=== PATIENT | male | born 1955 | race Caucasian/White ===

== ENCOUNTER 2016-12-20 12:27 | Emergency (ER) | payer OTHER ==
[~2016-12-20] VITALS: Ht 193 cm; Wt 100.4 kg
[2016-12-20] MEDS ORDERED: DOXY100C PO (12:51)
[2016-12-20] MEDS ORDERED: MAGN1TAB25 PO (12:51)
[2016-12-20] MEDS ORDERED: LOMO2.5T PO (12:51)
[2016-12-20] MEDS ORDERED: ESCI5SOL3 PO (12:51)
[2016-12-20] MEDS ORDERED: [UNRECOGNIZED DRUG - CODE] IV (12:51)
[2016-12-20] MEDS ORDERED: LORA1TAB12 PO (12:51)
[2016-12-20] MEDS ORDERED: ONDA4TAB5 PO (12:51)
[2016-12-20] MEDS ORDERED: NS 500 ML IV ONE (13:45)
[2016-12-20 13:59] LABS: BASO % 0.4 % (0.0-1.0); EOS # 0.2 K/mm3 (0.0-0.50); EOS % 2.7 % (0.0-3.0); LARGE UNSTAINED CELL # 0.1 K/mm3 (0.0-0.4); LARGE UNSTAINED CELL % 1.3 % (0.0-4.0); LYMPH # 0.9 K/mm3 (1.5-4.5); LYMPH % 13.3 % (24.0-44.0); MEAN CORPUSCULAR HGB CONC 33.6 g/dl (32.0-36.5); MEAN CORPUSCULAR VOLUME 101.1 fl (80.0-96.0); MONO # 0.3 K/mm3 (0.0-0.8); MONO % 5.1 % (0.0-5.0); NEUTROPHILS # 4.9 K/mm3 (1.8-7.7); NEUTROPHILS % 77.3 % (36.0-66.0); PLATELET COUNT, AUTOMATED 179 k/mm3 (150-450); RED CELL DISTRIBUTION WIDTH 13.5 % (11.5-14.5); WHITE BLOOD COUNT 6.4 K/mm3 (4.0-10.0)
--- NOTE | 2016-12-20 14:18 | REP ---
ABDOMEN FLAT AND UPRIGHT, PA CHEST, THREE VIEW: HISTORY: Abdominal pain. A small amount of air is present in small and large intestine. There are no air fluid levels or dilated loops of intestine. There is no pneumoperitoneum. The lungs are clear. IMPRESSION: Nonspecific bowel gas pattern. Signed by Terell Mercado MD 12/20/2016 02:22 P
[2016-12-20 14:24] LABS: ALBUMIN 3.5 GM/DL (3.2-5.2); ALBUMIN/GLOBULIN RATIO 1.06 (1.00-1.93); ALKALINE PHOSPHATASE 84 U/L (45-117); ALT/SGPT 22 U/L (12-78); ANION GAP 7 MEQ/L (8-16); AST/SGOT 11 U/L (15-37); BILIRUBIN,DIRECT 0.2 MG/DL (0.0-0.2); BILIRUBIN,TOTAL 0.6 MG/DL (0.2-1.0); BLOOD UREA NITROGEN 8 MG/DL (7-18); CALCIUM LEVEL 8.9 MG/DL (8.8-10.2); CARBON DIOXIDE LEVEL 28 MEQ/L (21-32); CHLORIDE LEVEL 104 MEQ/L (98-107); CREATININE FOR GFR 0.95 MG/DL (0.70-1.30); GLOMERULAR FILTRATION RATE > 60.0 (>49); GLUCOSE, FASTING 154 MG/DL (80-110); POTASSIUM SERUM 4.1 MEQ/L (3.5-5.1); SODIUM LEVEL 139 MEQ/L (136-145); TOTAL PROTEIN 6.8 GM/DL (6.4-8.2)
[2016-12-20] MEDS ORDERED: ISOVUE-370 76% 100ML VIAL (Q9967) As Ordered ONE (14:28)
--- NOTE | 2016-12-20 15:31 | ED PDOC ---
Post-Departure Follow-Up AT THIS TIME, SPOKE WITH DR. ROWAN, PT'S ONCOLOGIST AT [facility]. ADVISED THAT NONE OF THE CT FINDINGS TODAY ARE NEW AND THEY HAVE BEEN STABLE FOR "A WHILE". DR. ROWAN WAS CONCERNED FOR ACUTE OBSTRUCTION/ADHESIONS AND REASSURED HIM THAT THERE WAS NO SIGN OF ANY ACUTE OR SURGICAL FINDINGS TODAY. HE ADVISED THAT THIS PT HAS TREATMENTS WITH THEIR OFFICE Q2-4 WEEKS AND SHOULD HAVE AN UPCOMING APPOINTMENT THIS WEEK OR NEXT WEEK. PT WILL FOLLOW UP WITH THEIR OFFICE AND DR. ROWAN ADVISED PT CAN CALL TO BE SEEN SOONER IN THE OFFICE FOR ANY OTHER CONCERNS. AZIZA CUELLAR PA-C Dec 20, 2016 15:31
[2016-12-20] MEDS ORDERED: ACET30TAB PO (15:35)
[2016-12-20 15:38] VITALS: BP 140/80
--- NOTE | 2016-12-20 15:40 | REP ---
CT abdomen and pelvis with IV but without oral contrast: History: Right lower quadrant pain. History of colon carcinoma status post resection. CT contrast dose: 100 mL of intravenous Isovue 370. No comparison study. CT findings: Preliminary digital rack washer radiograph shows a enterostomy ring in the left lower quadrant. The lung bases are clear. There is a small amount of ascites visible in the perihepatic and perisplenic region of the upper abdomen. The liver and spleen are normal in size and homogeneous in texture on postcontrast images. No adrenal mass is observed on either side. The gallbladder is unremarkable. No pancreatic mass or cyst is seen. The kidneys enhance symmetrically and are morphologically intact. Normal caliber aorta is seen. A left lower quadrant colostomy is seen. There is some interloop ascites in the lower abdomen and pelvis. No small or large bowel dilation is seen. There is an anastomotic suture line in the right lower quadrant. The patient appears to be status post abdominoperineal resection. Urinary bladder is unremarkable. There is some irregular enhancing tissue in the presacral soft tissues. In addition there is a large fat density mass lesion occupying the central and left pelvis. This measures 6.4 x 6.0 x 14.7 cm. This may be a lipoma or an area of postoperative fatty implantation. No pelvic adenopathy or other mass lesion is seen. Impression: 1. Status post abdominoperineal resection with left lower quadrant colostomy. There is a small bowel anastomosis in the right mid abdomen. 2. There is mild ascites in the upper and lower abdomen etiology uncertain. 3. There is nodular enhancing tissue in the presacral soft tissues. I cannot exclude recurrent neoplasm. This measures approximately 4.1 cm. 4. There is a large fat tissue deposit versus lipoma in the pelvis 14.5 cm in diameter. 5. No other significant finding. Signed by Arnoldo Cabello MD 12/20/2016 05:19 P
[2016-12-20] MEDS ORDERED: MAGNESIUM CITRATE 300 ML BTL PO ONE (15:45)
== END 2016-12-20 15:49 | disposition home or self-care (01) ==
LOC: M ED 12:27 → EDBD 12:27 → M ED 15:49
DX: R10.31 Right lower quadrant pain (principal); C18.9 Malignant neoplasm of colon, unspecified; Z90.49 Acquired absence of other specified parts of digestive tract; R18.8 Other ascites; R93.41 Abnormal radiologic findings on diagnostic imaging of renal pelvis, ureter, or bladder; Z79.899 Other long term (current) drug therapy
CPT/HCPCS: 74022; 74177; 80048; 80076; 83690; 85025; 99283; Q9967

== ENCOUNTER 2017-09-29 13:10 | Inpatient (IN) | payer OTHER ==
[2017-09-29] MEDS: NS 1,000 ML IV ×2 (14:44→18:38)
[2017-09-29] MEDS: MECLIZINE 25 MG TABLET PO (14:44)
[2017-09-29] MEDS: METOCLOPRAMIDE INJ 10MG/2ML VIAL (J2765) IV (14:44)
[2017-09-29 15:01] LABS: HEMATOCRIT 30.6 % (42.0-52.0); HEMOGLOBIN 10.3 g/dl (13.5-17.5); MEAN CORPUSCULAR HEMOGLOBIN 31.1 pg (27.0-33.0); MEAN CORPUSCULAR HGB CONC 33.7 g/dl (32.0-36.5); MEAN CORPUSCULAR VOLUME 92.4 fl (80.0-96.0); RED BLOOD COUNT 3.31 10^6/uL (4.30-6.10); RED CELL DISTRIBUTION WIDTH 13.7 % (11.5-14.5); WHITE BLOOD COUNT 3.1 10^3/uL (4.0-10.0)
[2017-09-29] MEDS: LIDOCAINE 2% 5ML JELLY UROJET TOP (15:09)
[2017-09-29 15:10] LABS: PLATELET COUNT, AUTOMATED 54 10^3/uL (150-450); POSITIVE DIFF POS FLAG; POSITIVE MORPH POS FLAG
[2017-09-29 15:11] LABS: ADD MANUAL DIFFER YES; DIFF SLIDE NUMBER 273
[2017-09-29 15:12] LABS: INR 1.14; PLATELET F 53; PROTHROMBIN TIME 14.8 SECONDS (12.4-14.5)
[2017-09-29 15:16] LABS: ALBUMIN 1.6 GM/DL (3.2-5.2); ALBUMIN/GLOBULIN RATIO 0.32 (1.00-1.93); ALKALINE PHOSPHATASE 115 U/L (45-117); ALT/SGPT 39 U/L (12-78); AMYLASE 2 U/L (25-115); ANION GAP 8 MEQ/L (8-16); AST/SGOT 58 U/L (7-37); BILIRUBIN,DIRECT < 0.1 MG/DL (0.0-0.2); BILIRUBIN,TOTAL 0.4 MG/DL (0.2-1.0); BLOOD UREA NITROGEN 53 MG/DL (7-18); CALCIUM LEVEL 7.9 MG/DL (8.8-10.2); CARBON DIOXIDE LEVEL 23 MEQ/L (21-32); CHLORIDE LEVEL 96 MEQ/L (98-107); CK-MB VALUE MASS < 1.0 NG/ML (<3.6); CPK CREATINE PHOSPHOKINASE 148 U/L (39-308); CREATININE FOR GFR 3.72 MG/DL (0.70-1.30); GLOMERULAR FILTRATION RATE 17.6 (>49); LIPASE 25 U/L (73-393); MB/CK RELATIVE INDEX 0.67 (< OR =4); SODIUM LEVEL 127 MEQ/L (136-145); TOTAL PROTEIN 6.6 GM/DL (6.4-8.2); TROPONIN I < 0.02 NG/ML (< 0.10)
[2017-09-29 15:19] LABS: GLUCOSE, FASTING 500 MG/DL (70-100)
[2017-09-29 15:20] LABS: POTASSIUM SERUM 6.3 MEQ/L (3.5-5.1)
[2017-09-29 15:31] LABS: LYMPHOCYTES 4 % (16-52); MONOCYTES 1 % (0-8); NEUTROPHILS 95 % (35-75); PLATELET ESTIMATE MARKED DECREASE (NORMAL)
[2017-09-29 16:21] LABS: AMORPHOUS SEDIMENT RFX SMALL (NEGATIVE); KETONE, URINE AUTO RFX NEGATIVE (NEGATIVE); MUCUS, URINE RFX SMALL (NEGATIVE); NITRITE, URINE AUTO RFX NEGATIVE (NEGATIVE); RBC, URINE AUTO RFX 18 /HPF (0-3); SPECIFIC GRAVITY UR AUTO RFX 1.007 (1.002-1.035); SQUAM EPITHELIAL CELL UR AURFX 0 /HPF (0-6); TRANSITIONAL EPITHELIAL AU RFX 2 /HPF
[2017-09-29 16:22] LABS: LEUKOCYTE ESTERASE UR AUTO RFX 3+ (NEGATIVE); WBC, URINE AUTO RFX 103 /HPF (0-3)
[2017-09-29] MEDS: MORPHINE 2 MG/ML 1ML SYRINGE (J2270) IV (16:38)
[2017-09-29] MEDS ORDERED: GLUCOSE 4 GM CHEW TABLET PO (18:00)
[2017-09-29] MEDS ORDERED: DEXTROSE 50% 50 ML SYRINGE IV (18:00)
[2017-09-29] MEDS ORDERED: GLUCAGON FOR INJ 1 MG VIAL (J1610) SC (18:00)
[2017-09-29] MEDS: HumuLIN R (REGULAR) INSULIN (NovoLIN R) **100U/ML** PER UNIT SC (18:10)
[2017-09-29 18:33] LABS: BEDSIDE GLUCOSE 480 MG/DL (80-115)
[2017-09-29] MEDS: CALCIUM GLUCONATE 1,000 MG in D5W MINI-BAG PLUS 100 ML IV (18:38)
[2017-09-29 19:16] LABS: ESTIMATED AVERAGE GLUCOSE 214 MG/DL (60-110); HEMOGLOBIN A1c 9.1 %
[2017-09-29 19:57] LABS: MAGNESIUM LEVEL 1.4 MG/DL (1.8-2.4)
[2017-09-29] MEDS: cefTRIAXone SOD 1 GM in D5W MINI-BAG PLUS 50 ML IV (20:45)
[2017-09-29] MEDS: ACETAMINOPHEN TAB 650MG DOSE (2X325MG) PO (21:47)
[2017-09-29 21:50] LABS: BEDSIDE GLUCOSE 324 MG/DL (80-115)
[2017-09-29] MEDS: HumaLOG INSULIN (NovoLOG) PER UNIT SC (21:53)
[2017-09-29 23:18] LABS: POTASSIUM SERUM 5.1 MEQ/L (3.5-5.1)
[2017-09-30 00:13] LABS: BEDSIDE GLUCOSE 270 MG/DL (80-115)
[2017-09-30 02:42] LABS: ANION GAP 7 MEQ/L (8-16); BLOOD UREA NITROGEN 57 MG/DL (7-18); CALCIUM LEVEL 7.2 MG/DL (8.8-10.2); CARBON DIOXIDE LEVEL 25 MEQ/L (21-32); CHLORIDE LEVEL 103 MEQ/L (98-107); CREATININE FOR GFR 4.06 MG/DL (0.70-1.30); GLOMERULAR FILTRATION RATE 15.9 (>49); GLUCOSE, FASTING 230 MG/DL (70-100); SODIUM LEVEL 135 MEQ/L (136-145)
[2017-09-30 02:51] LABS: POTASSIUM SERUM 5.2 MEQ/L (3.5-5.1)
[2017-09-30] MEDS: NS 1,000 ML IV ×3 (05:53→21:02)
[2017-09-30 05:56] LABS: HEMATOCRIT 26.8 % (42.0-52.0); HEMOGLOBIN 9.1 g/dl (13.5-17.5); MEAN CORPUSCULAR HEMOGLOBIN 30.8 pg (27.0-33.0); MEAN CORPUSCULAR VOLUME 90.8 fl (80.0-96.0); RED BLOOD COUNT 2.95 10^6/uL (4.30-6.10); RED CELL DISTRIBUTION WIDTH 13.9 % (11.5-14.5); WHITE BLOOD COUNT 4.3 10^3/uL (4.0-10.0)
[2017-09-30 05:58] LABS: PLATELET COUNT, AUTOMATED 37 10^3/uL (150-450)
[2017-09-30 06:05] LABS: MAGNESIUM LEVEL 1.4 MG/DL (1.8-2.4)
[2017-09-30] MEDS: ESCITALOPRAM OXALATE 10 MG TAB (LEXAPRO) PO (08:46)
[2017-09-30] MEDS: TAMSULOSIN 0.4 MG CAP PO (08:46)
[2017-09-30] MEDS: FINASTERIDE 5 MG TAB PO (08:46)
[2017-09-30] MEDS: AZITHROMYCIN INJ 500 MG, VIAL MATE ADAPTER 1 EACH in D5W 250 ML IV (08:47)
[2017-09-30] MEDS: HumaLOG INSULIN (NovoLOG) PER UNIT SC ×4 (08:47→21:00)
[2017-09-30 09:15] LABS: ANION GAP 9 MEQ/L (8-16); BLOOD UREA NITROGEN 62 MG/DL (7-18); CALCIUM LEVEL 7.9 MG/DL (8.8-10.2); CARBON DIOXIDE LEVEL 22 MEQ/L (21-32); CHLORIDE LEVEL 102 MEQ/L (98-107); CREATININE FOR GFR 4.28 MG/DL (0.70-1.30); GLUCOSE, FASTING 265 MG/DL (70-100); SODIUM LEVEL 133 MEQ/L (136-145)
[2017-09-30 09:25] LABS: POTASSIUM SERUM 5.4 MEQ/L (3.5-5.1)
[2017-09-30] MEDS ORDERED: NS 1,000 ML IV (11:45)
[2017-09-30] MEDS: MAG SULF 1GM/100ML (MAG RUN) 1 GM in APPROPRIATE DILUENT 1 EA IV ×2 (11:52→13:07)
[2017-09-30 12:03] LABS: BEDSIDE GLUCOSE 264 MG/DL (80-115)
[2017-09-30] MEDS: PERCOCET 5MG/325MG TAB PO (12:37)
[2017-09-30] MEDS: ACETAMINOPHEN TAB 650MG DOSE (2X325MG) PO (16:14)
[2017-09-30 16:30] LABS: ANION GAP 7 MEQ/L (8-16); BLOOD UREA NITROGEN 62 MG/DL (7-18); CALCIUM LEVEL 7.8 MG/DL (8.8-10.2); CARBON DIOXIDE LEVEL 23 MEQ/L (21-32); CHLORIDE LEVEL 102 MEQ/L (98-107); CREATININE FOR GFR 4.89 MG/DL (0.70-1.30); GLOMERULAR FILTRATION RATE 12.9 (>49); GLUCOSE, FASTING 241 MG/DL (70-100); SODIUM LEVEL 132 MEQ/L (136-145)
[2017-09-30 16:43] LABS: POTASSIUM SERUM 5.5 MEQ/L (3.5-5.1)
[2017-09-30 17:05] LABS: BEDSIDE GLUCOSE 241 MG/DL (80-115)
[2017-09-30] MEDS: PATIROMER SORBITEX CALCIUM 8.4 GM POWDER PACKET (VELTASSA) PO (18:16)
[2017-09-30] MEDS: cefTRIAXone SOD 1 GM in D5W MINI-BAG PLUS 50 ML IV (20:00)
[2017-09-30] MEDS ORDERED: LEVEMIR (INSULIN DETEMIR) 1 UNITS/0.01ML SC (21:00)
[2017-09-30 21:14] LABS: BEDSIDE GLUCOSE 201 MG/DL (80-115)
[2017-09-30] MEDS: LEVEMIR (INSULIN DETEMIR) 1 UNITS/0.01ML SC (22:34)
[2017-10-01] MEDS: FUROSEMIDE 20 MG/2 ML VIAL (J1940) IV
[2017-10-01] MEDS: ACETAMINOPHEN TAB 650MG DOSE (2X325MG) PO ×2 (00:37→16:46)
[2017-10-01 04:43] LABS: HEMATOCRIT 26.8 % (42.0-52.0); HEMOGLOBIN 8.9 g/dl (13.5-17.5); MEAN CORPUSCULAR HEMOGLOBIN 30.6 pg (27.0-33.0); MEAN CORPUSCULAR HGB CONC 33.2 g/dl (32.0-36.5); MEAN CORPUSCULAR VOLUME 92.1 fl (80.0-96.0); RED BLOOD COUNT 2.91 10^6/uL (4.30-6.10); RED CELL DISTRIBUTION WIDTH 14.7 % (11.5-14.5); WHITE BLOOD COUNT 5.5 10^3/uL (4.0-10.0)
[2017-10-01 04:47] LABS: PLATELET COUNT, AUTOMATED 39 10^3/uL (150-450)
[2017-10-01 04:47] LABS: MAGNESIUM LEVEL 2.1 MG/DL (1.8-2.4)
[2017-10-01 04:49] LABS: IMMATURE PLATELET FRACTION % 11.3 % (0.0-10.9)
[2017-10-01 04:59] LABS: ALBUMIN 1.4 GM/DL (3.2-5.2); ALBUMIN/GLOBULIN RATIO 0.42 (1.00-1.93); ALKALINE PHOSPHATASE 117 U/L (45-117); ALT/SGPT 37 U/L (12-78); ANION GAP 8 MEQ/L (8-16); AST/SGOT 43 U/L (7-37); BILIRUBIN,TOTAL 0.3 MG/DL (0.2-1.0); BLOOD UREA NITROGEN 73 MG/DL (7-18); CALCIUM LEVEL 7.1 MG/DL (8.8-10.2); CARBON DIOXIDE LEVEL 23 MEQ/L (21-32); CHLORIDE LEVEL 103 MEQ/L (98-107); CREATININE FOR GFR 5.15 MG/DL (0.70-1.30); GLOMERULAR FILTRATION RATE 12.1 (>49); GLUCOSE, FASTING 182 MG/DL (70-100); POTASSIUM SERUM 4.9 MEQ/L (3.5-5.1); SODIUM LEVEL 134 MEQ/L (136-145); TOTAL PROTEIN 4.7 GM/DL (6.4-8.2)
[2017-10-01] MEDS: NS 1,000 ML IV ×3 (05:07→22:51)
[2017-10-01] MEDS: AZITHROMYCIN INJ 500 MG, VIAL MATE ADAPTER 1 EACH in D5W 250 ML IV (08:50)
[2017-10-01] MEDS: PERCOCET 5MG/325MG TAB PO ×2 (08:51→18:55)
[2017-10-01] MEDS: FINASTERIDE 5 MG TAB PO (08:51)
[2017-10-01] MEDS: HumaLOG INSULIN (NovoLOG) PER UNIT SC ×4 (08:51→20:41)
[2017-10-01] MEDS: TAMSULOSIN 0.4 MG CAP PO (08:51)
[2017-10-01] MEDS: ESCITALOPRAM OXALATE 10 MG TAB (LEXAPRO) PO (08:52)
[2017-10-01 11:36] LABS: BEDSIDE GLUCOSE 197 MG/DL (80-115)
[2017-10-01 16:55] LABS: BEDSIDE GLUCOSE 133 MG/DL (80-115)
[2017-10-01 20:15] LABS: BEDSIDE GLUCOSE 140 MG/DL (80-115)
[2017-10-01] MEDS: LEVEMIR (INSULIN DETEMIR) 1 UNITS/0.01ML SC (20:40)
[2017-10-01] MEDS: cefTRIAXone SOD 1 GM in D5W MINI-BAG PLUS 50 ML IV (20:41)
[2017-10-02] MEDS: PERCOCET 5MG/325MG TAB PO (03:02)
[2017-10-02] MEDS: ACETAMINOPHEN TAB 650MG DOSE (2X325MG) PO ×2 (04:41→20:50)
[2017-10-02 05:00] LABS: HEMATOCRIT 29.4 % (42.0-52.0); HEMOGLOBIN 9.6 g/dl (13.5-17.5); MEAN CORPUSCULAR HEMOGLOBIN 31.3 pg (27.0-33.0); MEAN CORPUSCULAR HGB CONC 32.7 g/dl (32.0-36.5); MEAN CORPUSCULAR VOLUME 95.8 fl (80.0-96.0); RED BLOOD COUNT 3.07 10^6/uL (4.30-6.10); RED CELL DISTRIBUTION WIDTH 15.5 % (11.5-14.5); WHITE BLOOD COUNT 6.4 10^3/uL (4.0-10.0)
[2017-10-02 05:18] LABS: AMORPHOUS SEDIMENT RFX SMALL (NEGATIVE); KETONE, URINE AUTO RFX NEGATIVE (NEGATIVE); MUCUS, URINE RFX SMALL (NEGATIVE); NITRITE, URINE AUTO RFX NEGATIVE (NEGATIVE); PLATELET COUNT, AUTOMATED 58 10^3/uL (150-450); RBC, URINE AUTO RFX TNTC /HPF (0-3); SPECIFIC GRAVITY UR AUTO RFX 1.006 (1.002-1.035); SQUAM EPITHELIAL CELL UR AURFX 0 /HPF (0-6); TRANSITIONAL EPITHELIAL AU RFX 6 /HPF
[2017-10-02 05:19] LABS: IMMATURE PLATELET FRACTION % 9.1 % (0.0-10.9)
[2017-10-02 05:56] LABS: LEUKOCYTE ESTERASE UR AUTO RFX 2+ (NEGATIVE); WBC, URINE AUTO RFX 129 /HPF (0-3)
[2017-10-02 07:02] LABS: CARBON DIOXIDE LEVEL 17 MEQ/L (21-32)
[2017-10-02] MEDS: NS 1,000 ML IV (07:35)
[2017-10-02 08:12] LABS: BLOOD UREA NITROGEN 80 MG/DL (7-18); CREATININE FOR GFR 5.53 MG/DL (0.70-1.30); GLOMERULAR FILTRATION RATE 11.2 (>49); GLUCOSE, FASTING 131 MG/DL (70-100); SODIUM LEVEL 135 MEQ/L (136-145)
[2017-10-02 08:13] LABS: ANION GAP 13 MEQ/L (8-16); CALCIUM LEVEL 7.8 MG/DL (8.8-10.2); CHLORIDE LEVEL 105 MEQ/L (98-107); POTASSIUM SERUM 5.2 MEQ/L (3.5-5.1)
[2017-10-02] MEDS: AZITHROMYCIN INJ 500 MG, VIAL MATE ADAPTER 1 EACH in D5W 250 ML IV (09:04)
[2017-10-02] MEDS: HumaLOG INSULIN (NovoLOG) PER UNIT SC ×4 (09:04→21:00)
[2017-10-02] MEDS: ESCITALOPRAM OXALATE 10 MG TAB (LEXAPRO) PO (09:04)
[2017-10-02] MEDS: TAMSULOSIN 0.4 MG CAP PO (09:04)
[2017-10-02] MEDS: FINASTERIDE 5 MG TAB PO (09:04)
[2017-10-02] MEDS: SODIUM BICARBONATE 75 MEQ in NS 0.45% 1,000 ML IV (11:11)
[2017-10-02 12:27] LABS: BEDSIDE GLUCOSE 185 MG/DL (80-115)
[2017-10-02 18:02] LABS: BEDSIDE GLUCOSE 118 MG/DL (80-115)
[2017-10-02 20:20] LABS: BEDSIDE GLUCOSE 168 MG/DL (80-115)
[2017-10-02] MEDS: cefTRIAXone SOD 1 GM in D5W MINI-BAG PLUS 50 ML IV (20:49)
[2017-10-02] MEDS: LEVEMIR (INSULIN DETEMIR) 1 UNITS/0.01ML SC (20:50)
[2017-10-03] MEDS: SODIUM BICARBONATE 75 MEQ in NS 0.45% 1,000 ML IV ×2 (02:24→18:21)
[2017-10-03 05:57] LABS: HEMATOCRIT 30.2 % (42.0-52.0); MEAN CORPUSCULAR HGB CONC 33.1 g/dl (32.0-36.5); MEAN CORPUSCULAR VOLUME 93.5 fl (80.0-96.0); PLATELET COUNT, AUTOMATED 104 10^3/uL (150-450); RED BLOOD COUNT 3.23 10^6/uL (4.30-6.10); RED CELL DISTRIBUTION WIDTH 15.9 % (11.5-14.5)
[2017-10-03 07:17] LABS: ANION GAP 11 MEQ/L (8-16); BLOOD UREA NITROGEN 90 MG/DL (7-18); CALCIUM LEVEL 7.8 MG/DL (8.8-10.2); CARBON DIOXIDE LEVEL 21 MEQ/L (21-32); CHLORIDE LEVEL 104 MEQ/L (98-107); CREATININE FOR GFR 5.41 MG/DL (0.70-1.30); GLOMERULAR FILTRATION RATE 11.5 (>49); GLUCOSE, FASTING 113 MG/DL (70-100); MAGNESIUM LEVEL 2.1 MG/DL (1.8-2.4); POTASSIUM SERUM 4.5 MEQ/L (3.5-5.1); SODIUM LEVEL 136 MEQ/L (136-145)
[2017-10-03] MEDS: HumaLOG INSULIN (NovoLOG) PER UNIT SC ×4 (07:30→21:00)
[2017-10-03] MEDS: ACETAMINOPHEN TAB 650MG DOSE (2X325MG) PO ×3 (08:46→20:31)
[2017-10-03] MEDS: FINASTERIDE 5 MG TAB PO (08:46)
[2017-10-03] MEDS: AZITHROMYCIN 250 MG TAB PO (08:47)
[2017-10-03] MEDS: ESCITALOPRAM OXALATE 10 MG TAB (LEXAPRO) PO (08:47)
[2017-10-03] MEDS: TAMSULOSIN 0.4 MG CAP PO (08:47)
[2017-10-03 11:36] LABS: BEDSIDE GLUCOSE 85 MG/DL (80-115)
[2017-10-03] MEDS: LORazepam 1 MG TAB PO ×2 (12:13→20:30)
[2017-10-03] MEDS: DOCUSATE SODIUM 100 MG CAP PO (16:30)
[2017-10-03 17:46] LABS: BEDSIDE GLUCOSE 119 MG/DL (80-115)
[2017-10-03 20:01] LABS: BEDSIDE GLUCOSE 122 MG/DL (80-115)
[2017-10-03] MEDS: cefTRIAXone SOD 1 GM in D5W MINI-BAG PLUS 50 ML IV (20:37)
[2017-10-03] MEDS: LEVEMIR (INSULIN DETEMIR) 1 UNITS/0.01ML SC ×2 (21:00→21:29)
[2017-10-04 05:48] LABS: HEMOGLOBIN 8.7 g/dl (13.5-17.5); MEAN CORPUSCULAR HEMOGLOBIN 30.7 pg (27.0-33.0); MEAN CORPUSCULAR HGB CONC 33.5 g/dl (32.0-36.5); MEAN CORPUSCULAR VOLUME 91.9 fl (80.0-96.0); RED BLOOD COUNT 2.83 10^6/uL (4.30-6.10); RED CELL DISTRIBUTION WIDTH 15.5 % (11.5-14.5); WHITE BLOOD COUNT 6.7 10^3/uL (4.0-10.0)
[2017-10-04 05:56] LABS: IMMATURE PLATELET FRACTION % 7.2 % (0.0-10.9); PLATELET COUNT, AUTOMATED 83 10^3/uL (150-450)
[2017-10-04 06:11] LABS: ANION GAP 9 MEQ/L (8-16); BLOOD UREA NITROGEN 89 MG/DL (7-18); CALCIUM LEVEL 7.4 MG/DL (8.8-10.2); CARBON DIOXIDE LEVEL 22 MEQ/L (21-32); CHLORIDE LEVEL 104 MEQ/L (98-107); CREATININE FOR GFR 5.14 MG/DL (0.70-1.30); GLOMERULAR FILTRATION RATE 12.1 (>49); GLUCOSE, FASTING 170 MG/DL (70-100); POTASSIUM SERUM 4.6 MEQ/L (3.5-5.1); SODIUM LEVEL 135 MEQ/L (136-145)
[2017-10-04] MEDS: FINASTERIDE 5 MG TAB PO (09:07)
[2017-10-04] MEDS: ESCITALOPRAM OXALATE 10 MG TAB (LEXAPRO) PO (09:07)
[2017-10-04] MEDS: TAMSULOSIN 0.4 MG CAP PO (09:07)
[2017-10-04] MEDS: LORazepam 1 MG TAB PO ×2 (09:07→21:00)
[2017-10-04] MEDS: HumaLOG INSULIN (NovoLOG) PER UNIT SC ×4 (09:07→21:11)
[2017-10-04] MEDS: AZITHROMYCIN 250 MG TAB PO (09:07)
[2017-10-04] MEDS: SODIUM BICARBONATE 75 MEQ in NS 0.45% 1,000 ML IV (10:50)
[2017-10-04 11:28] LABS: BEDSIDE GLUCOSE 235 MG/DL (80-115)
[2017-10-04] MEDS: SENNA 8.6 MG TAB (SENOKOT) PO (15:56)
[2017-10-04] MEDS: DOCUSATE SODIUM 100 MG CAP PO (15:56)
[2017-10-04 17:08] LABS: BEDSIDE GLUCOSE 171 MG/DL (80-115)
[2017-10-04] MEDS: ACETAMINOPHEN TAB 650MG DOSE (2X325MG) PO (18:20)
[2017-10-04] MEDS: cefTRIAXone SOD 1 GM in D5W MINI-BAG PLUS 50 ML IV (21:00)
[2017-10-04 21:13] LABS: BEDSIDE GLUCOSE 155 MG/DL (80-115)
[2017-10-04] MEDS: LEVEMIR (INSULIN DETEMIR) 1 UNITS/0.01ML SC (21:19)
[2017-10-04] MEDS ORDERED: SLF 3 ML SYR IV (23:45)
[2017-10-05] MEDS: SLF 3 ML SYR IV ×3 (05:16→21:29)
[2017-10-05 05:29] LABS: HEMATOCRIT 24.6 % (42.0-52.0); HEMOGLOBIN 8.2 g/dl (13.5-17.5); MEAN CORPUSCULAR HEMOGLOBIN 30.8 pg (27.0-33.0); MEAN CORPUSCULAR HGB CONC 33.3 g/dl (32.0-36.5); MEAN CORPUSCULAR VOLUME 92.5 fl (80.0-96.0); PLATELET COUNT, AUTOMATED 116 10^3/uL (150-450); RED BLOOD COUNT 2.66 10^6/uL (4.30-6.10); RED CELL DISTRIBUTION WIDTH 15.8 % (11.5-14.5); WHITE BLOOD COUNT 7.2 10^3/uL (4.0-10.0)
[2017-10-05 05:44] LABS: ANION GAP 11 MEQ/L (8-16); BLOOD UREA NITROGEN 81 MG/DL (7-18); CALCIUM LEVEL 7.2 MG/DL (8.8-10.2); CARBON DIOXIDE LEVEL 22 MEQ/L (21-32); CHLORIDE LEVEL 104 MEQ/L (98-107); CREATININE FOR GFR 4.68 MG/DL (0.70-1.30); GLOMERULAR FILTRATION RATE 13.5 (>49); GLUCOSE, FASTING 127 MG/DL (70-100); MAGNESIUM LEVEL 1.7 MG/DL (1.8-2.4); PHOSPHORUS LEVEL 3.8 MG/DL (2.5-4.9); POTASSIUM SERUM 4.6 MEQ/L (3.5-5.1); SODIUM LEVEL 137 MEQ/L (136-145)
[2017-10-05] MEDS: MAG SULF 1GM/100ML (MAG RUN) 1 GM in APPROPRIATE DILUENT 1 EA IV (06:45)
[2017-10-05] MEDS: HumaLOG INSULIN (NovoLOG) PER UNIT SC ×4 (07:30→21:00)
[2017-10-05] MEDS: ACETAMINOPHEN TAB 650MG DOSE (2X325MG) PO ×4 (07:55→21:28)
[2017-10-05] MEDS: ESCITALOPRAM OXALATE 10 MG TAB (LEXAPRO) PO (09:37)
[2017-10-05] MEDS: SENNA 8.6 MG TAB (SENOKOT) PO (09:37)
[2017-10-05] MEDS: DOCUSATE SODIUM 100 MG CAP PO (09:37)
[2017-10-05] MEDS: FINASTERIDE 5 MG TAB PO (09:37)
[2017-10-05] MEDS: TAMSULOSIN 0.4 MG CAP PO (09:37)
[2017-10-05 12:11] LABS: BEDSIDE GLUCOSE 165 MG/DL (80-115)
[2017-10-05] MEDS: HEPARIN SOD (PORCINE) 5000 UNITS/ML VIAL SQ ×2 (12:37→21:29)
[2017-10-05 12:51] LABS: KETONE, URINE AUTO RFX NEGATIVE (NEGATIVE); MUCUS, URINE RFX SMALL (NEGATIVE); NITRITE, URINE AUTO RFX NEGATIVE (NEGATIVE); RBC, URINE AUTO RFX 95 /HPF (0-3); SPECIFIC GRAVITY UR AUTO RFX 1.008 (1.002-1.035); SQUAM EPITHELIAL CELL UR AURFX 0 /HPF (0-6)
[2017-10-05 13:01] LABS: LEUKOCYTE ESTERASE UR AUTO RFX 3+ (NEGATIVE); WBC, URINE AUTO RFX 107 /HPF (0-3)
[2017-10-05 17:29] LABS: BEDSIDE GLUCOSE 169 MG/DL (80-115)
[2017-10-05] MEDS ORDERED: SODIUM CHLORIDE 0.9% INJ 10 ML SYR IV (18:15)
[2017-10-05] MEDS: cefTRIAXone SOD 2 GM in D5W MINI-BAG PLUS 50 ML IV (18:20)
[2017-10-05 20:10] LABS: BEDSIDE GLUCOSE 159 MG/DL (80-115)
[2017-10-05] MEDS: LORazepam 1 MG TAB PO (21:28)
[2017-10-05] MEDS: LEVEMIR (INSULIN DETEMIR) 1 UNITS/0.01ML SC (21:29)
[2017-10-06] MEDS: SLF 3 ML SYR IV ×3 (06:00→21:11)
[2017-10-06 06:08] LABS: BEDSIDE GLUCOSE 94 MG/DL (80-115)
[2017-10-06] MEDS: HumaLOG INSULIN (NovoLOG) PER UNIT SC ×4 (07:30→21:00)
[2017-10-06] MEDS: FINASTERIDE 5 MG TAB PO (09:06)
[2017-10-06] MEDS: ESCITALOPRAM OXALATE 10 MG TAB (LEXAPRO) PO (09:06)
[2017-10-06] MEDS: HEPARIN SOD (PORCINE) 5000 UNITS/ML VIAL SQ ×2 (09:06→21:19)
[2017-10-06] MEDS: SODIUM CHLORIDE 0.9% INJ 10 ML SYR IV (09:07)
[2017-10-06] MEDS: TAMSULOSIN 0.4 MG CAP PO (09:07)
[2017-10-06 09:52] LABS: HEMOGLOBIN 7.8 g/dl (13.5-17.5); MEAN CORPUSCULAR HEMOGLOBIN 30.7 pg (27.0-33.0); MEAN CORPUSCULAR HGB CONC 32.5 g/dl (32.0-36.5); MEAN CORPUSCULAR VOLUME 94.5 fl (80.0-96.0); PLATELET COUNT, AUTOMATED 159 10^3/uL (150-450); RED BLOOD COUNT 2.54 10^6/uL (4.30-6.10); RED CELL DISTRIBUTION WIDTH 15.9 % (11.5-14.5)
[2017-10-06 10:15] LABS: ANION GAP 11 MEQ/L (8-16); BLOOD UREA NITROGEN 72 MG/DL (7-18); CARBON DIOXIDE LEVEL 24 MEQ/L (21-32); CHLORIDE LEVEL 105 MEQ/L (98-107); CREATININE FOR GFR 4.18 MG/DL (0.70-1.30); GLOMERULAR FILTRATION RATE 15.4 (>49); GLUCOSE, FASTING 171 MG/DL (70-100); POTASSIUM SERUM 4.9 MEQ/L (3.5-5.1); SODIUM LEVEL 140 MEQ/L (136-145)
[2017-10-06 11:21] LABS: BEDSIDE GLUCOSE 145 MG/DL (80-115)
[2017-10-06 16:44] LABS: BEDSIDE GLUCOSE 134 MG/DL (80-115)
[2017-10-06] MEDS: cefTRIAXone SOD 2 GM in D5W MINI-BAG PLUS 50 ML IV (17:28)
[2017-10-06] MEDS: ACETAMINOPHEN TAB 650MG DOSE (2X325MG) PO (18:15)
[2017-10-06 20:51] LABS: BEDSIDE GLUCOSE 189 MG/DL (80-115)
[2017-10-06 20:55] LABS: IMMEDIATE SPIN CROSSMATCH 1 1
[2017-10-06] MEDS: LEVEMIR (INSULIN DETEMIR) 1 UNITS/0.01ML SC (21:19)
[2017-10-06] MEDS ORDERED: fentaNYL 100 MCG/2 ML INJECTION (J3010) As Ordered (23:14)
[2017-10-06] MEDS ORDERED: MIDAZOLAM INJ 2 MG/2 ML VIAL (J2250) As Ordered (23:14)
[2017-10-07] MEDS ORDERED: PROPOFOL 200 MG/20 ML VIAL As Ordered (00:41)
[2017-10-07] MEDS: LIDOCAINE 1% SDV INJ 30 ML VIAL As Ordered (01:11)
[2017-10-07] MEDS: NS 1,000 ML IV (03:45)
[2017-10-07] MEDS ORDERED: METOCLOPRAMIDE INJ 10MG/2ML VIAL (J2765) IV (03:45)
[2017-10-07] MEDS ORDERED: PERCOCET 5MG/325MG TAB PO (03:45)
[2017-10-07] MEDS ORDERED: fentaNYL 100 MCG/2 ML INJECTION (J3010) IV (03:45)
[2017-10-07] MEDS ORDERED: ONDANSETRON 4MG/2ML VIAL (J2405) IV (03:45)
[2017-10-07] MEDS: SLF 3 ML SYR IV ×3 (06:00→21:23)
[2017-10-07 06:39] LABS: BASO % 0.2 % (0.0-1.0); EOS % 0.4 % (0.0-3.0); HEMATOCRIT 25.7 % (42.0-52.0); HEMOGLOBIN 8.6 g/dl (13.5-17.5); IMMATURE GRANULOCYTE % 1.6 % (0-3.0); LYMPH % 1.8 % (24.0-44.0); MEAN CORPUSCULAR HEMOGLOBIN 30.8 pg (27.0-33.0); MEAN CORPUSCULAR HGB CONC 33.5 g/dl (32.0-36.5); MEAN CORPUSCULAR VOLUME 92.1 fl (80.0-96.0); MONO # 0.2 10^3/uL (0.0-0.8); MONO % 2.6 % (0.0-5.0); NEUTROPHILS % 93.4 % (36.0-66.0); PLATELET COUNT, AUTOMATED 205 10^3/uL (150-450); RED BLOOD COUNT 2.79 10^6/uL (4.30-6.10); RED CELL DISTRIBUTION WIDTH 16.7 % (11.5-14.5); WHITE BLOOD COUNT 8.5 10^3/uL (4.0-10.0)
[2017-10-07 07:09] LABS: ANION GAP 8 MEQ/L (8-16); BLOOD UREA NITROGEN 64 MG/DL (7-18); CALCIUM LEVEL 7.3 MG/DL (8.8-10.2); CARBON DIOXIDE LEVEL 23 MEQ/L (21-32); CHLORIDE LEVEL 107 MEQ/L (98-107); CREATININE FOR GFR 3.58 MG/DL (0.70-1.30); GLOMERULAR FILTRATION RATE 18.4 (>49); GLUCOSE, FASTING 123 MG/DL (70-100); POTASSIUM SERUM 4.9 MEQ/L (3.5-5.1); SODIUM LEVEL 138 MEQ/L (136-145)
[2017-10-07] MEDS: HumaLOG INSULIN (NovoLOG) PER UNIT SC ×4 (07:30→21:00)
[2017-10-07 07:48] LABS: LYMPH # 0.2 10^3/uL (1.5-4.5); POSITIVE DIFF POS FLAG
[2017-10-07 08:19] LABS: ALBUMIN 1.3 GM/DL (3.2-5.2); MAGNESIUM LEVEL 1.8 MG/DL (1.8-2.4); PHOSPHORUS LEVEL 3.2 MG/DL (2.5-4.9)
[2017-10-07] MEDS: SODIUM CHLORIDE 0.9% 1000 ML IV (08:30)
[2017-10-07] MEDS: SODIUM CHLORIDE 0.9% INJ 10 ML SYR IV (09:00)
[2017-10-07] MEDS: ESCITALOPRAM OXALATE 10 MG TAB (LEXAPRO) PO (09:49)
[2017-10-07] MEDS: FINASTERIDE 5 MG TAB PO (09:49)
[2017-10-07] MEDS: TAMSULOSIN 0.4 MG CAP PO (09:50)
[2017-10-07] MEDS: HEPARIN SOD (PORCINE) 5000 UNITS/ML VIAL SQ ×2 (09:52→21:22)
[2017-10-07 11:53] LABS: BEDSIDE GLUCOSE 141 MG/DL (80-115)
[2017-10-07 16:59] LABS: BEDSIDE GLUCOSE 123 MG/DL (80-115)
[2017-10-07] MEDS: cefTRIAXone SOD 2 GM in D5W MINI-BAG PLUS 50 ML IV (17:56)
[2017-10-07 20:57] LABS: BEDSIDE GLUCOSE 186 MG/DL (80-115)
[2017-10-07] MEDS: LEVEMIR (INSULIN DETEMIR) 1 UNITS/0.01ML SC (21:22)
[2017-10-08] MEDS: SLF 3 ML SYR IV ×3 (05:26→21:29)
[2017-10-08 06:50] LABS: BASO % 0.2 % (0.0-1.0); EOS % 0.3 % (0.0-3.0); HEMOGLOBIN 8.7 g/dl (13.5-17.5); IMMATURE GRANULOCYTE % 1.7 % (0-3.0); LYMPH % 1.8 % (24.0-44.0); MEAN CORPUSCULAR HEMOGLOBIN 30.3 pg (27.0-33.0); MEAN CORPUSCULAR HGB CONC 32.2 g/dl (32.0-36.5); MEAN CORPUSCULAR VOLUME 94.1 fl (80.0-96.0); MONO # 0.2 10^3/uL (0.0-0.8); MONO % 2.2 % (0.0-5.0); NEUTROPHILS # 8.2 10^3/uL (1.8-7.7); NEUTROPHILS % 93.8 % (36.0-66.0); PLATELET COUNT, AUTOMATED 235 10^3/uL (150-450); RED BLOOD COUNT 2.87 10^6/uL (4.30-6.10); RED CELL DISTRIBUTION WIDTH 16.3 % (11.5-14.5); WHITE BLOOD COUNT 8.8 10^3/uL (4.0-10.0)
[2017-10-08 06:54] LABS: LYMPH # 0.2 10^3/uL (1.5-4.5); POSITIVE DIFF POS FLAG
[2017-10-08 07:12] LABS: BLOOD UREA NITROGEN 56 MG/DL (7-18); CREATININE FOR GFR 3.27 MG/DL (0.70-1.30); GLUCOSE, FASTING 151 MG/DL (70-100)
[2017-10-08 07:13] LABS: ANION GAP 9 MEQ/L (8-16); CALCIUM LEVEL 7.7 MG/DL (8.8-10.2); CARBON DIOXIDE LEVEL 23 MEQ/L (21-32); CHLORIDE LEVEL 107 MEQ/L (98-107); GLOMERULAR FILTRATION RATE 20.5 (>49); POTASSIUM SERUM 4.6 MEQ/L (3.5-5.1); SODIUM LEVEL 139 MEQ/L (136-145)
[2017-10-08] MEDS: SODIUM CHLORIDE 0.9% INJ 10 ML SYR IV (09:00)
[2017-10-08] MEDS: FINASTERIDE 5 MG TAB PO (09:22)
[2017-10-08] MEDS: HumaLOG INSULIN (NovoLOG) PER UNIT SC ×5 (09:22→21:00)
[2017-10-08] MEDS: HEPARIN SOD (PORCINE) 5000 UNITS/ML VIAL SQ ×2 (09:22→21:29)
[2017-10-08] MEDS: ESCITALOPRAM OXALATE 10 MG TAB (LEXAPRO) PO (09:22)
[2017-10-08] MEDS: TAMSULOSIN 0.4 MG CAP PO (09:22)
[2017-10-08 12:02] LABS: BEDSIDE GLUCOSE 110 MG/DL (80-115)
[2017-10-08 17:20] LABS: BEDSIDE GLUCOSE 178 MG/DL (80-115)
[2017-10-08] MEDS: cefTRIAXone SOD 2 GM in D5W MINI-BAG PLUS 50 ML IV (18:12)
[2017-10-08 20:55] LABS: BEDSIDE GLUCOSE 148 MG/DL (80-115)
[2017-10-08] MEDS: LEVEMIR (INSULIN DETEMIR) 1 UNITS/0.01ML SC (21:29)
[2017-10-09] MEDS: SLF 3 ML SYR IV ×3 (05:12→21:31)
[2017-10-09 06:19] LABS: BEDSIDE GLUCOSE 110 MG/DL (80-115)
[2017-10-09 07:47] LABS: BASO % 0.2 % (0.0-1.0); EOS % 0.3 % (0.0-3.0); HEMATOCRIT 26.4 % (42.0-52.0); HEMOGLOBIN 8.6 g/dl (13.5-17.5); LYMPH % 1.9 % (24.0-44.0); MEAN CORPUSCULAR HEMOGLOBIN 30.6 pg (27.0-33.0); MEAN CORPUSCULAR HGB CONC 32.6 g/dl (32.0-36.5); MONO # 0.2 10^3/uL (0.0-0.8); MONO % 2.6 % (0.0-5.0); NEUTROPHILS # 8.5 10^3/uL (1.8-7.7); PLATELET COUNT, AUTOMATED 275 10^3/uL (150-450); RED BLOOD COUNT 2.81 10^6/uL (4.30-6.10); RED CELL DISTRIBUTION WIDTH 15.8 % (11.5-14.5); WHITE BLOOD COUNT 9.1 10^3/uL (4.0-10.0)
[2017-10-09 08:01] LABS: ANION GAP 7 MEQ/L (8-16); BLOOD UREA NITROGEN 48 MG/DL (7-18); CARBON DIOXIDE LEVEL 24 MEQ/L (21-32); CHLORIDE LEVEL 109 MEQ/L (98-107); GLOMERULAR FILTRATION RATE 22.6 (>49); GLUCOSE, FASTING 99 MG/DL (70-100); POTASSIUM SERUM 4.5 MEQ/L (3.5-5.1); SODIUM LEVEL 140 MEQ/L (136-145)
[2017-10-09] MEDS: HEPARIN SOD (PORCINE) 5000 UNITS/ML VIAL SQ ×2 (08:26→21:30)
[2017-10-09] MEDS: FINASTERIDE 5 MG TAB PO (08:26)
[2017-10-09] MEDS: ESCITALOPRAM OXALATE 10 MG TAB (LEXAPRO) PO (08:26)
[2017-10-09] MEDS: TAMSULOSIN 0.4 MG CAP PO (08:26)
[2017-10-09] MEDS: SODIUM CHLORIDE 0.9% INJ 10 ML SYR IV (08:27)
[2017-10-09] MEDS: HumaLOG INSULIN (NovoLOG) PER UNIT SC ×4 (08:27→21:00)
[2017-10-09 09:11] LABS: LYMPH # 0.2 10^3/uL (1.5-4.5); POSITIVE DIFF POS FLAG
[2017-10-09 11:24] LABS: BEDSIDE GLUCOSE 115 MG/DL (80-115)
[2017-10-09 12:04] LABS: IMMEDIATE SPIN CROSSMATCH 1 1
[2017-10-09 17:05] LABS: BEDSIDE GLUCOSE 119 MG/DL (80-115)
[2017-10-09] MEDS: CEFDINIR 300 MG CAP (OMNICEF) PO (17:31)
[2017-10-09 20:43] LABS: BEDSIDE GLUCOSE 148 MG/DL (80-115)
[2017-10-09] MEDS: ACETAMINOPHEN TAB 650MG DOSE (2X325MG) PO (21:30)
[2017-10-09] MEDS: LEVEMIR (INSULIN DETEMIR) 1 UNITS/0.01ML SC (21:31)
[2017-10-10] MEDS: SLF 3 ML SYR IV ×3 (05:13→21:30)
[2017-10-10 05:58] LABS: BEDSIDE GLUCOSE 93 MG/DL (80-115)
[2017-10-10 06:32] LABS: BASO % 0.4 % (0.0-1.0); EOS % 0.4 % (0.0-3.0); HEMATOCRIT 29.3 % (42.0-52.0); HEMOGLOBIN 9.5 g/dl (13.5-17.5); IMMATURE GRANULOCYTE % 1.7 % (0-3.0); LYMPH # 0.3 10^3/uL (1.5-4.5); MEAN CORPUSCULAR HEMOGLOBIN 30.4 pg (27.0-33.0); MEAN CORPUSCULAR HGB CONC 32.4 g/dl (32.0-36.5); MEAN CORPUSCULAR VOLUME 93.6 fl (80.0-96.0); MONO # 0.3 10^3/uL (0.0-0.8); MONO % 3.3 % (0.0-5.0); NEUTROPHILS # 8.2 10^3/uL (1.8-7.7); NEUTROPHILS % 91.2 % (36.0-66.0); PLATELET COUNT, AUTOMATED 290 10^3/uL (150-450); RED BLOOD COUNT 3.13 10^6/uL (4.30-6.10); RED CELL DISTRIBUTION WIDTH 15.7 % (11.5-14.5)
[2017-10-10 06:58] LABS: POSITIVE DIFF POS FLAG
[2017-10-10] MEDS: HumaLOG INSULIN (NovoLOG) PER UNIT SC ×4 (07:30→21:00)
[2017-10-10] MEDS: CEFDINIR 300 MG CAP (OMNICEF) PO (08:30)
[2017-10-10] MEDS: TAMSULOSIN 0.4 MG CAP PO (08:30)
[2017-10-10] MEDS: FINASTERIDE 5 MG TAB PO (08:30)
[2017-10-10] MEDS: ESCITALOPRAM OXALATE 10 MG TAB (LEXAPRO) PO (08:30)
[2017-10-10] MEDS: SODIUM CHLORIDE 0.9% INJ 10 ML SYR IV (08:32)
[2017-10-10] MEDS: HEPARIN SOD (PORCINE) 5000 UNITS/ML VIAL SQ ×2 (08:32→21:00)
[2017-10-10 08:52] LABS: ANION GAP 11 MEQ/L (8-16); BLOOD UREA NITROGEN 43 MG/DL (7-18); CALCIUM LEVEL 7.9 MG/DL (8.8-10.2); CARBON DIOXIDE LEVEL 22 MEQ/L (21-32); CHLORIDE LEVEL 108 MEQ/L (98-107); CREATININE FOR GFR 2.87 MG/DL (0.70-1.30); GLOMERULAR FILTRATION RATE 23.8 (>49); GLUCOSE, FASTING 85 MG/DL (70-100); POTASSIUM SERUM 4.7 MEQ/L (3.5-5.1); SODIUM LEVEL 141 MEQ/L (136-145)
[2017-10-10 11:22] LABS: BEDSIDE GLUCOSE 145 MG/DL (80-115)
[2017-10-10 17:27] LABS: BEDSIDE GLUCOSE 108 MG/DL (80-115)
[2017-10-10] MEDS: LEVEMIR (INSULIN DETEMIR) 1 UNITS/0.01ML SC (21:00)
[2017-10-10 21:04] LABS: BEDSIDE GLUCOSE 184 MG/DL (80-115)
[2017-10-11 05:41] LABS: BEDSIDE GLUCOSE 144 MG/DL (80-115)
[2017-10-11] MEDS: SLF 3 ML SYR IV (05:44)
[2017-10-11] MEDS: HumaLOG INSULIN (NovoLOG) PER UNIT SC ×2 (07:30→12:00)
[2017-10-11] MEDS: SODIUM CHLORIDE 0.9% INJ 10 ML SYR IV (07:44)
[2017-10-11 07:47] LABS: BASO % 0.4 % (0.0-1.0); EOS # 0.1 10^3/uL (0.0-0.50); EOS % 0.5 % (0.0-3.0); HEMATOCRIT 28.4 % (42.0-52.0); HEMOGLOBIN 9.2 g/dl (13.5-17.5); IMMATURE GRANULOCYTE % 1.9 % (0-3.0); LYMPH # 0.4 10^3/uL (1.5-4.5); LYMPH % 4.5 % (24.0-44.0); MEAN CORPUSCULAR HEMOGLOBIN 30.4 pg (27.0-33.0); MEAN CORPUSCULAR HGB CONC 32.4 g/dl (32.0-36.5); MEAN CORPUSCULAR VOLUME 93.7 fl (80.0-96.0); MONO # 0.4 10^3/uL (0.0-0.8); MONO % 4.7 % (0.0-5.0); NEUTROPHILS # 8.2 10^3/uL (1.8-7.7); PLATELET COUNT, AUTOMATED 271 10^3/uL (150-450); RED BLOOD COUNT 3.03 10^6/uL (4.30-6.10); RED CELL DISTRIBUTION WIDTH 15.4 % (11.5-14.5); WHITE BLOOD COUNT 9.3 10^3/uL (4.0-10.0)
[2017-10-11 07:56] LABS: ANION GAP 10 MEQ/L (8-16); BLOOD UREA NITROGEN 33 MG/DL (7-18); CALCIUM LEVEL 7.6 MG/DL (8.8-10.2); CARBON DIOXIDE LEVEL 19 MEQ/L (21-32); CHLORIDE LEVEL 109 MEQ/L (98-107); CREATININE FOR GFR 2.59 MG/DL (0.70-1.30); GLOMERULAR FILTRATION RATE 26.8 (>49); GLUCOSE, FASTING 164 MG/DL (70-100); POTASSIUM SERUM 4.7 MEQ/L (3.5-5.1); SODIUM LEVEL 138 MEQ/L (136-145)
[2017-10-11] MEDS: HEPARIN SOD (PORCINE) 5000 UNITS/ML VIAL SQ (09:00)
[2017-10-11] MEDS: FINASTERIDE 5 MG TAB PO (09:15)
[2017-10-11] MEDS: ESCITALOPRAM OXALATE 10 MG TAB (LEXAPRO) PO (09:15)
[2017-10-11] MEDS: CEFDINIR 300 MG CAP (OMNICEF) PO ×2 (09:15→11:49)
[2017-10-11] MEDS: TAMSULOSIN 0.4 MG CAP PO (09:15)
[2017-10-12] MEDS ORDERED: CEFDINIR 300 MG CAP (OMNICEF) PO (09:00)
== END 2017-10-11 13:00 | disposition home or self-care (01) | DRG 711 ==
LOC: M ED 13:10 → M MS5PR 10-05 16:39 → M ED INP 17:50 → M PCU 21:03
PROC: 30233N1 Transfusion of Nonautologous Red Blood Cells into Peripheral Vein, Percutaneous Approach (ICD-10-PCS; principal; 2017-10-07 00:34)
PROC: 02PY33Z Removal of Infusion Device from Great Vessel, Percutaneous Approach (ICD-10-PCS; 2017-10-07 00:34)
DX: T80.212A Local infection due to central venous catheter, initial encounter (principal); A41.59 Other Gram-negative sepsis; J18.9 Pneumonia, unspecified organism; N17.9 Acute kidney failure, unspecified; D61.818 Other pancytopenia; D69.6 Thrombocytopenia, unspecified; N39.0 Urinary tract infection, site not specified; N30.40 Irradiation cystitis without hematuria; K56.7 Ileus, unspecified; E11.65 Type 2 diabetes mellitus with hyperglycemia; E87.5 Hyperkalemia; E87.1 Hypo-osmolality and hyponatremia; K21.9 Gastro-esophageal reflux disease without esophagitis; F41.9 Anxiety disorder, unspecified; F32.9 Major depressive disorder, single episode, unspecified; R33.9 Retention of urine, unspecified; N40.0 Benign prostatic hyperplasia without lower urinary tract symptoms; D64.9 Anemia, unspecified; Z79.899 Other long term (current) drug therapy; B96.1 Klebsiella pneumoniae [K. pneumoniae] as the cause of diseases classified elsewhere; E86.0 Dehydration; Z85.038 Personal history of other malignant neoplasm of large intestine; K94.09 Other complications of colostomy; Y82.8 Other medical devices associated with adverse incidents

== ENCOUNTER 2017-11-19 20:46 | Inpatient (IN) | payer OTHER ==
[2017-11-19] MEDS: ACETAMINOPHEN 325 MG TAB PO (21:26)
[2017-11-19] MEDS: NS 500 ML IV (21:26)
[2017-11-19 21:32] LABS: BASO % 0.1 % (0.0-1.0); EOS % 0.2 % (0.0-3.0); HEMATOCRIT 15.8 % (42.0-52.0); IMMATURE GRANULOCYTE % 2.8 % (0-3.0); LYMPH % 16.6 % (24.0-44.0); MEAN CORPUSCULAR HEMOGLOBIN 28.1 pg (27.0-33.0); MEAN CORPUSCULAR HGB CONC 31.6 g/dl (32.0-36.5); MEAN CORPUSCULAR VOLUME 88.8 fl (80.0-96.0); MONO % 5.5 % (0.0-5.0); NEUTROPHILS # 13.7 10^3/uL (1.8-7.7); NEUTROPHILS % 74.8 % (36.0-66.0); PLATELET COUNT, AUTOMATED 462 10^3/uL (150-450); RED BLOOD COUNT 1.78 10^6/uL (4.30-6.10); RED CELL DISTRIBUTION WIDTH 15.7 % (11.5-14.5); WHITE BLOOD COUNT 18.3 10^3/uL (4.0-10.0)
[2017-11-19 21:42] LABS: APPEARANCE, URINE MANUAL TURBID (CLEAR); COLOR, URINE MANUAL RED (YELLOW)
[2017-11-19 21:44] LABS: GLUCOSE, URINE (UA) MANUAL NEGATIVE (NEGATIVE); PROTEIN, URINE MANUAL 3+ mg/dL (NEGATIVE)
[2017-11-19 21:45] LABS: BILIRUBIN, URINE MANUAL NEGATIVE (NEGATIVE); BLOOD URINE MANUAL POSITIVE (NEGATIVE); KETONE, URINE MANUAL NEGATIVE (NEGATIVE); LEUKOCYTE ESTERASE, URINE MAN 3 (NEGATIVE); MICROSCOPIC INDICATED? MAN YES (NO); NITRITE, URINE MANUAL POSITIVE (NEGATIVE); UROBILINOGEN, URINE MANUAL NORMAL (NORMAL)
[2017-11-19 21:46] LABS: RBC, URINE TNTC /hpf (0-3); SQUAMOUS EPITHELIAL CELL URINE NONE SEEN /hpf (SMALL AMT); WBC, URINE TNTC /hpf (0-3)
[2017-11-19 21:47] LABS: HYALINE CAST, URINE NONE SEEN /lpf (0-1); MICROSCOPIC EXAM UNSPUN
[2017-11-19 21:48] LABS: BACTERIA, URINE MOD AMOUNT
[2017-11-19 21:53] LABS: ALBUMIN 1.9 GM/DL (3.2-5.2); ALBUMIN/GLOBULIN RATIO 0.38 (1.00-1.93); ALKALINE PHOSPHATASE 141 U/L (45-117); ALT/SGPT 27 U/L (12-78); ANION GAP 9 MEQ/L (8-16); AST/SGOT 19 U/L (7-37); BILIRUBIN,DIRECT 0.2 MG/DL (0.0-0.2); BILIRUBIN,TOTAL 0.4 MG/DL (0.2-1.0); BLOOD UREA NITROGEN 58 MG/DL (7-18); CALCIUM LEVEL 7.6 MG/DL (8.8-10.2); CARBON DIOXIDE LEVEL 24 MEQ/L (21-32); CHLORIDE LEVEL 97 MEQ/L (98-107); CREATININE FOR GFR 4.82 MG/DL (0.70-1.30); GLUCOSE, FASTING 159 MG/DL (70-100); SODIUM LEVEL 130 MEQ/L (136-145); TOTAL PROTEIN 6.9 GM/DL (6.4-8.2)
[2017-11-19 21:54] LABS: POTASSIUM SERUM 5.9 MEQ/L (3.5-5.1)
[2017-11-19 21:57] LABS: LACTIC ACID SEPSIS PROTOCOL 1.1 MMOL/L (0.4-2.0)
[2017-11-19] MEDS: VANCOMYCIN HCL 750 MG, VIAL MATE ADAPTER 1 EACH in D5W 250 ML IV (22:15)
[2017-11-19] MEDS: SOD POLYSTYRENE SULFONATE SUSP 15 GM/60 ML UD PO (22:28)
[2017-11-19] MEDS: IMIPENEM/CILASTATIN 250 MG in D5W MINI-BAG PLUS 100 ML IV (22:28)
[2017-11-20 01:41] LABS: IMMEDIATE SPIN CROSSMATCH 1 2
[2017-11-20] MEDS: OMEPRAZOLE 20 MG CAP PO ×2 (03:42→20:02)
[2017-11-20] MEDS: ESCITALOPRAM OXALATE 10 MG TAB (LEXAPRO) PO ×2 (03:42→20:03)
[2017-11-20] MEDS: cefTRIAXone SOD 1 GM in D5W MINI-BAG PLUS 50 ML IV ×2 (03:44→23:31)
[2017-11-20] MEDS: NS 1,000 ML IV ×2 (03:44→12:10)
[2017-11-20 06:47] LABS: MEAN CORPUSCULAR HEMOGLOBIN 28.7 pg (27.0-33.0); MEAN CORPUSCULAR HGB CONC 32.3 g/dl (32.0-36.5); MEAN CORPUSCULAR VOLUME 88.7 fl (80.0-96.0); PLATELET COUNT, AUTOMATED 373 10^3/uL (150-450); RED BLOOD COUNT 2.93 10^6/uL (4.30-6.10); RED CELL DISTRIBUTION WIDTH 15.2 % (11.5-14.5); WHITE BLOOD COUNT 19.4 10^3/uL (4.0-10.0)
[2017-11-20 06:51] LABS: HEMOGLOBIN 8.4 g/dl (13.5-17.5)
[2017-11-20 07:08] LABS: ANION GAP 12 MEQ/L (8-16); BLOOD UREA NITROGEN 56 MG/DL (7-18); CALCIUM LEVEL 7.9 MG/DL (8.8-10.2); CARBON DIOXIDE LEVEL 21 MEQ/L (21-32); CHLORIDE LEVEL 100 MEQ/L (98-107); CREATININE FOR GFR 4.64 MG/DL (0.70-1.30); GLOMERULAR FILTRATION RATE 13.6 (>49); GLUCOSE, FASTING 162 MG/DL (70-100); POTASSIUM SERUM 5.5 MEQ/L (3.5-5.1); SODIUM LEVEL 133 MEQ/L (136-145)
[2017-11-20 12:29] LABS: IMMEDIATE SPIN CROSSMATCH 1 1
[2017-11-20] MEDS: ACETAMINOPHEN TAB 650MG DOSE (2X325MG) PO (15:33)
[2017-11-20] MEDS: PERCOCET 5MG/325MG TAB PO (15:45)
[2017-11-21] MEDS: ACETAMINOPHEN TAB 650MG DOSE (2X325MG) PO ×3 (02:09→17:08)
[2017-11-21] MEDS: PERCOCET 5MG/325MG TAB PO (03:03)
[2017-11-21] MEDS: NS 1,000 ML IV ×3 (05:44→23:45)
[2017-11-21 08:51] LABS: BASO % 0.1 % (0.0-1.0); EOS # 0.1 10^3/uL (0.0-0.50); EOS % 0.5 % (0.0-3.0); HEMATOCRIT 17.7 % (42.0-52.0); IMMATURE GRANULOCYTE % 3.3 % (0-3.0); LYMPH % 12.1 % (24.0-44.0); MEAN CORPUSCULAR HEMOGLOBIN 28.7 pg (27.0-33.0); MEAN CORPUSCULAR HGB CONC 31.6 g/dl (32.0-36.5); MEAN CORPUSCULAR VOLUME 90.8 fl (80.0-96.0); MONO # 0.7 10^3/uL (0.0-0.8); MONO % 4.1 % (0.0-5.0); NEUTROPHILS # 13.2 10^3/uL (1.8-7.7); NEUTROPHILS % 79.9 % (36.0-66.0); PLATELET COUNT, AUTOMATED 395 10^3/uL (150-450); RED BLOOD COUNT 1.95 10^6/uL (4.30-6.10); RED CELL DISTRIBUTION WIDTH 15.6 % (11.5-14.5); WHITE BLOOD COUNT 16.5 10^3/uL (4.0-10.0)
[2017-11-21 08:58] LABS: HEMOGLOBIN 5.6 g/dl (13.5-17.5)
[2017-11-21 09:12] LABS: ALBUMIN 1.6 GM/DL (3.2-5.2); ALBUMIN/GLOBULIN RATIO 0.34 (1.00-1.93); ALKALINE PHOSPHATASE 129 U/L (45-117); ALT/SGPT 30 U/L (12-78); ANION GAP 11 MEQ/L (8-16); AST/SGOT 31 U/L (7-37); BILIRUBIN,TOTAL 0.3 MG/DL (0.2-1.0); BLOOD UREA NITROGEN 45 MG/DL (7-18); CALCIUM LEVEL 7.4 MG/DL (8.8-10.2); CARBON DIOXIDE LEVEL 24 MEQ/L (21-32); CHLORIDE LEVEL 102 MEQ/L (98-107); CREATININE FOR GFR 3.59 MG/DL (0.70-1.30); GLOMERULAR FILTRATION RATE 18.3 (>49); GLUCOSE, FASTING 125 MG/DL (70-100); POTASSIUM SERUM 4.4 MEQ/L (3.5-5.1); SODIUM LEVEL 137 MEQ/L (136-145); TOTAL PROTEIN 6.3 GM/DL (6.4-8.2)
[2017-11-21 09:53] LABS: HEMATOCRIT 20.4 % (42.0-52.0)
[2017-11-21 09:58] LABS: HEMOGLOBIN 6.6 g/dl (13.5-17.5)
[2017-11-21] MEDS: LORazepam 1 MG TAB PO (10:49)
[2017-11-21 12:30] LABS: IMMEDIATE SPIN CROSSMATCH 1 2
[2017-11-21] MEDS: OMEPRAZOLE 20 MG CAP PO (20:14)
[2017-11-21] MEDS: ESCITALOPRAM OXALATE 10 MG TAB (LEXAPRO) PO (20:15)
[2017-11-21 20:30] LABS: HEMATOCRIT 26.3 % (42.0-52.0); HEMOGLOBIN 8.7 g/dl (13.5-17.5); MEAN CORPUSCULAR HEMOGLOBIN 29.7 pg (27.0-33.0); MEAN CORPUSCULAR HGB CONC 33.1 g/dl (32.0-36.5); MEAN CORPUSCULAR VOLUME 89.8 fl (80.0-96.0); PLATELET COUNT, AUTOMATED 396 10^3/uL (150-450); RED BLOOD COUNT 2.93 10^6/uL (4.30-6.10); RED CELL DISTRIBUTION WIDTH 14.9 % (11.5-14.5); WHITE BLOOD COUNT 15.3 10^3/uL (4.0-10.0)
[2017-11-21] MEDS: cefTRIAXone SOD 1 GM in D5W MINI-BAG PLUS 50 ML IV (23:45)
[2017-11-22 08:04] LABS: BASO % 0.2 % (0.0-1.0); EOS # 0.2 10^3/uL (0.0-0.50); HEMATOCRIT 27.7 % (42.0-52.0); HEMOGLOBIN 9.1 g/dl (13.5-17.5); IMMATURE GRANULOCYTE % 2.7 % (0-3.0); LYMPH # 2.2 10^3/uL (1.5-4.5); LYMPH % 15.3 % (24.0-44.0); MEAN CORPUSCULAR HEMOGLOBIN 29.5 pg (27.0-33.0); MEAN CORPUSCULAR HGB CONC 32.9 g/dl (32.0-36.5); MEAN CORPUSCULAR VOLUME 89.9 fl (80.0-96.0); MONO # 0.6 10^3/uL (0.0-0.8); MONO % 3.8 % (0.0-5.0); NEUTROPHILS # 11.2 10^3/uL (1.8-7.7); PLATELET COUNT, AUTOMATED 412 10^3/uL (150-450); RED BLOOD COUNT 3.08 10^6/uL (4.30-6.10); RED CELL DISTRIBUTION WIDTH 15.3 % (11.5-14.5); WHITE BLOOD COUNT 14.6 10^3/uL (4.0-10.0)
[2017-11-22 08:22] LABS: ANION GAP 10 MEQ/L (8-16); BLOOD UREA NITROGEN 40 MG/DL (7-18); CALCIUM LEVEL 7.6 MG/DL (8.8-10.2); CARBON DIOXIDE LEVEL 21 MEQ/L (21-32); CHLORIDE LEVEL 108 MEQ/L (98-107); CREATININE FOR GFR 3.19 MG/DL (0.70-1.30); GLUCOSE, FASTING 100 MG/DL (70-100); MAGNESIUM LEVEL 1.8 MG/DL (1.8-2.4); POTASSIUM SERUM 4.6 MEQ/L (3.5-5.1); SODIUM LEVEL 139 MEQ/L (136-145)
[2017-11-22] MEDS: ACETAMINOPHEN TAB 650MG DOSE (2X325MG) PO (10:59)
== END 2017-11-22 11:20 | disposition home or self-care (01) | DRG 720 ==
LOC: M ED INP 23:31 → M MSPAV 11-20 02:52 → M ED 20:46
PROC: 30243N1 Transfusion of Nonautologous Red Blood Cells into Central Vein, Percutaneous Approach (ICD-10-PCS; principal; 2017-11-19)
DX: A41.9 Sepsis, unspecified organism (principal); N18.4 Chronic kidney disease, stage 4 (severe); N17.9 Acute kidney failure, unspecified; D62 Acute posthemorrhagic anemia; T83.511A Infection and inflammatory reaction due to indwelling urethral catheter, initial encounter; C19 Malignant neoplasm of rectosigmoid junction; N39.0 Urinary tract infection, site not specified; Z66 Do not resuscitate; N40.1 Benign prostatic hyperplasia with lower urinary tract symptoms; F41.9 Anxiety disorder, unspecified; F32.9 Major depressive disorder, single episode, unspecified; D63.1 Anemia in chronic kidney disease; Z92.3 Personal history of irradiation; Z92.21 Personal history of antineoplastic chemotherapy; Z90.49 Acquired absence of other specified parts of digestive tract; Z93.3 Colostomy status; Z96.0 Presence of urogenital implants; Z87.440 Personal history of urinary (tract) infections; Z87.891 Personal history of nicotine dependence; B96.1 Klebsiella pneumoniae [K. pneumoniae] as the cause of diseases classified elsewhere; Y82.9 Unspecified medical devices associated with adverse incidents